=== PATIENT | male | born 1960 | race Caucasian/White ===

== ENCOUNTER 2017-04-27 12:19 | Emergency (ER) | payer OTHER ==
[2017-04-27] MEDS ORDERED: Aspirin EC Low Dose* 81 MG TAB.EC PO ONE (12:34)
[2017-04-27 12:35] VITALS: BP 161/113
[2017-04-27] MEDS ORDERED: Aspirin Low Dose CHEW TAB* 81 MG PO ONE (12:37)
[2017-04-27] MEDS ORDERED: Aspirin Low Dose CHEW TAB* 81 MG ONE (12:37)
--- NOTE | 2017-04-27 13:04 | UC ---
Rex Jeter Angela, scribed for Umesh Reyes MD on 04/27/17 at 1229 . Cardiac HPI - HPI Summary HPI Summary: This pt is a 56 y/o male presenting to [facility] c/o palpitations since 03:00 this morning. Pt reports he felt like his palpitations were due to anxiety as he has been under increased stress for the past couple of weeks. Pt notes he then went to work this morning but he continued to have palpitations. He states he had occasional chest pain which he describes as sharp. Denies any chest pain currently. He denies SOB, dizziness, feeling of passing out, lightheadedness, diaphoresis. PMHx significant for hyperthyroidism, hodgkin's disease, dyslipidemia. - History of Current Complaint Stated Complaint: CHEST COMPLAINT Time Seen by Provider: 04/27/17 12:22 Hx Obtained From: Patient Onset/Duration: Sudden Onset, Still Present Timing: Constant Current Severity: None Pain Intensity: 0 Chest Pain Location: Diffuse Character: Fast Aggravating Factor(s): Nothing Alleviating Factor(s): Nothing Associated Signs & Symptoms: Positive: Chest Pain, Recent Stress, Palpitations. Negative: Dizziness, SOB, Diaphoresis, Nausea/Vomiting - Allergy/Home Medications Allergies/Adverse Reactions: Allergies Allergy/AdvReac Type Severity Reaction Status Date / Time amoxicillin [From Augmentin] Allergy Rash Verified 04/27/17 12:36 clavulanic acid Allergy Rash Verified 04/27/17 12:36 [From Augmentin] Penicillins Allergy Rash Verified 04/27/17 12:36 Home Medications: Home Medications Aspirin 81 mg PO DAILY 04/27/17 [History Confirmed 04/27/17] Testosterone [Androgel] 5 gm TD DAILY 04/27/17 [History Confirmed 04/27/17] PMH/Surg Hx/FS Hx/Imm Hx - Additional Past Medical History Additional PMH: PMHx: dyslipidemia, hodgkin's lymphoma, s/p colonoscopy. Endocrine History: Thyroid Disease - hyperthyroidism Other Cardiovascular History: DENIES: HTN - Surgical History Surgical History: Yes Surgery Procedure, Year, and Place: splenectomy/appendectomy. abdominal surgery for hodgkin's disease - Family History Known Family History: Negative: Cardiac Disease, Hypertension, Diabetes - Social History Alcohol Use: Occasionally Substance Use Type: None Smoking Status (MU): Never Smoked Tobacco Review of Systems Constitutional: Negative Skin: Negative Eyes: Negative ENT: Negative Respiratory: Negative Cardiovascular: Palpitations, Chest Pain Gastrointestinal: Negative Genitourinary: Negative Motor: Negative Neurovascular: Negative Musculoskeletal: Negative Neurological: Negative Psychological: Negative All Other Systems Reviewed And Are Negative: Yes Physical Exam - Summary Physical Exam Summary: VITAL SIGNS: Reviewed. GENERAL: Patient is a well-developed and nourished male who is lying comfortable in the stretcher. Patient is not in any acute respiratory distress. HEAD AND FACE: Normocephalic EYES: PERRLA, EOMI x 2. EARS: Hearing grossly intact. MOUTH: Oropharynx within normal limits. NECK: Supple, trachea is midline, no adenopathy, no JVD, no carotid bruit. CHEST: Symmetric, no tenderness at palpation LUNGS: Clear to auscultation bilaterally. No wheezing or crackles. CVS: Tachycardic rate and rhythm, S1 and S2 present, no murmurs or gallops appreciated. ABDOMEN: Soft, non-tender. Bowel sounds are normal. No abdominal abnormal pulsations. EXTREMITIES: Full ROM in all major joints, no edema, no cyanosis or clubbing. NEURO: Alert and oriented x 3. No acute neurological deficits. Speech is normal and follows commands. SKIN: Dry and warm Triage Information Reviewed: Yes Vital Signs: Initial Vital Signs Temp 97.7 F 04/27/17 12:30 Pulse 129 04/27/17 12:30 Resp 16 04/27/17 12:30 BP 161/113 04/27/17 12:30 Pulse Ox 99 04/27/17 12:30 Vital Signs Reviewed: Yes Diagnostics - EKG Cardiac Rate: Tachycardia Cardiac Rhythm: Other Rhythm: New - EKG at 12:26 ectopic atrial tachycardia at 128 bpm. EKG at 12:29 shows ectopic atrial tachycardia at 128bpm. - Assessment/Plan Course Of Treatment: This pt is a 56 y/o male presenting to [facility] c/o palpitations since 03:00 this morning. Pt reports he felt like his palpitations were due to anxiety as he has been under increased stress for the past couple of weeks. Pt notes he then went to work this morning but he continued to have palpitations. He states he had occasional chest pain which he describes as sharp. Denies any chest pain currently. He denies SOB, dizziness, feeling of passing out, lightheadedness, diaphoresis. PMHx significant for hyperthyroidism , hodgkin's disease, dyslipidemia. The pt has an arrhythmia with 128 bpm, there are no T waves. Therefore, I believe the pt has atrial flutter, since he has an rregular rate and rhythm, or atrial tachycardia. I gave the pt aspirin at Urgent Care and he will be transferred to the ED. Pateint is asymptomatic and hemodynamically stable. I discussed the case with Dr. Sunshine, provider in the ED, who accepted the pt for transfer to the ED for further work up and management. Pt will be transferred to [facility] via ambulance. Pt is hemodynamically stable, alert and oriented x3. - Differential Diagnoses - Chest Pain Differential Diagnosis/HQI/PQRI: Other: - Atrial flutter, atrial tachycardia, arrhythmia - Clinical Impression Provider Diagnoses: Arrhythmia - Physician Notifications Discussed Patient Care With: Anibal Sunshine Time Discussed With Above Provider: 12:32 Instructed by Provider To: Other - I discussed pt care with Dr. Sunshine, provider in the ED. Pt will be transferred to the ED via ambulance. Discharge - Sign-Out/Discharge Documenting (check all that apply): Discharge - Discharge Plan Condition: Stable Disposition: TRANS HIGHER LVL OF CARE FAC Discharge Disposition Comment: [facility] ED Referrals: Madiha Negrete MD [Primary Care Provider] - - Billing Disposition and Condition Condition: STABLE Disposition: EMTALA The documentation as recorded by the Rex vazquez Angela accurately reflects the service I personally performed and the decisions made by me, Umesh Reyes MD.
== END 2017-04-27 12:50 | disposition short-term general hospital (02) ==
LOC: UCEAST 12:19
DX: I49.9 Cardiac arrhythmia, unspecified (principal); Z88.3 Allergy status to other anti-infective agents; Z88.0 Allergy status to penicillin
CPT/HCPCS: 93005; 99213; A9270-GY; G0463

== ENCOUNTER 2017-04-27 13:19 | Observation (INO) | payer OTHER ==
[2017-04-27] MEDS ORDERED: NS 0.9% 1000 ML* 2,000 ML IV ONE (13:54)
--- NOTE | 2017-04-27 14:28 | RAD ---
INDICATION: Tachycardia. COMPARISON: Comparison is made with a prior study from April 17, 2009. TECHNIQUE: A portable view of the chest was obtained. FINDINGS: Cardiac and mediastinal contours appear to be within normal limits. The lungs are clear. No pleural effusion is seen. IMPRESSION: NO EVIDENCE FOR ACUTE DISEASE.
[2017-04-27 14:36] LABS: ABS Basophils 0.1 10^3/ul (0-0.2); ABS Eosinophils 0 10^3/ul (0-0.6); ABS Neutrophils 10.2 10^3/ul (1.5-7.7); ABS Nucleated RBC 0 10^3/ul; Eosinophil % 0.3 % (0-6); Hematocrit 49 % (42-52); Hemoglobin 16.9 g/dl (14.0-18.0); Mean Corpuscular HGB Conc 34 g/dl (31-36); Mean Corpuscular Hemoglobin 31 pg (27-31); Mean Corpuscular Volume 92 fL (80-94); Mean Platelet Volume 8.2 um3 (7.4-10.4); Nucleated Red Blood Cells % 0.1; Platelet Count 286 10^3/ul (150-450); Red Blood Count 5.39 10^6/ul (4.0-5.4); Red Cell Distribution Width 13 % (10.5-15); White Blood Count 13.3 10^3/ul (3.5-10.8)
[2017-04-27] MEDS ORDERED: Metoprolol Tartrate TAB* 25 MG PO ONE (14:46)
[2017-04-27] MEDS ORDERED: Metoprolol Tartrate IV* 1 MG/ML 5 ML VIAL IV ONE (14:46)
[2017-04-27 14:54] LABS: EGFR Non-African American 86.5 (>60)
--- NOTE | 2017-04-27 16:32 | ECHO ---
Patient: TASIA GOEL [facility] Rec#: [id number] : 1960 Date: 04/27/2017 Age: 56y Height: 187.96 cm / 74.0 in Weight: 76.2 kg / 167.9 lbs Sex: M BSA: 2.02 Room#: -10 Admit Date#: 04/27/2017 Type: Inpatient Referring: Anibal Sunshine MD Reading: Aubrey Long MD Merchandise Processor: Sherice MillsCHI CC: Madiha Negrete MD Transthoracic Echocardiogram Indication: A-Flutter BP: 161/113 HR: 130 Rhythm: A-Flutter Findings History: Hyperthyroidism, Hodgkin's lymphoma, dyslipidemia. Technical Comments: The study quality is good. Completed at 1630. Left Ventricle: The left ventricular chamber size is decreased. Mild concentric left ventricular hypertrophy is observed. Global left ventricular wall motion and contractility are within normal limits. There is normal left ventricular systolic function. The estimated ejection fraction is 55-60%. The assessment of diastolic function is non-diagnostic. Left Atrium: The left atrial chamber size is normal. Right Ventricle: Moderator Band present. The right ventricular cavity size is normal. The right ventricular global systolic function is low normal. Right Atrium: The right atrium is moderately dilated. There is evidence of an atrial septal aneurysm. Aortic Valve: The aortic valve is trileaflet. There is no evidence of aortic valve thickening. There is no evidence of aortic regurgitation. There is no evidence of aortic stenosis. Mitral Valve: The mitral valve leaflets are mildly thickened. There is a trace of mitral regurgitation. There is no evidence of mitral stenosis. Tricuspid Valve: The tricuspid valve leaflets are normal. There is a physiologic tricuspid regurgitation. Unable to estimate the right ventricular systolic pressure. There is no tricuspid stenosis. Pulmonic Valve: The pulmonic valve appears normal. There is a trace pulmonic regurgitation. There is no pulmonic stenosis. Pericardium: There is no significant pericardial effusion. Aorta: There is no dilatation of the ascending aorta. There is no dilatation of the aortic arch. The aortic root is normal in size. Pulmonary Artery: The main pulmonary artery appears normal. Venous: The inferior vena cava appears normal in size. There is a greater than 50% respiratory change in the inferior vena cava dimension. Summary: There was not any prior study for comparison. Conclusions Mild concentric left ventricular hypertrophy is observed. The estimated ejection fraction is 55-60%. There is a trace of mitral regurgitation. There is a physiologic tricuspid regurgitation. Measurements Name Value Normal Range RVIDd (AP) 2D 3 cm (0.9 - 2.6) RVDdMajor (2D) 3.7 cm (2.2 - 4.4) RAd ISD 4CH 6.5 cm (3.4 - 4.9) RA (A4C)W 3.9 cm (2.9 - 4.6) IVSd (2D) 1.2 cm (0.6 - 1) LVPWd (2D) 1.3 cm (0.6 - 1) LVIDd (2D) 3.5 cm (3.6 - 5.4) LVIDs (2D) 2.2 cm - LV FS (2D) 35 % (25 - 45) Aortic Annulus 1.8 cm (1.4 - 2.6) Ao root diameter (2D) 3.2 cm (2.1 - 3.5) Ascending Ao 3.2 cm (2.1 - 3.4) Aortic arch 2.8 cm (1.8 - 3.4) LA dimension (AP) 2D 3.2 cm (2.3 - 3.8) LAd ISD 4CH 4.9 cm (2.9 - 5.3) LA ISD 4CH W 3.8 cm (2.5 - 4.5) Name Value Normal Range LA ESV SP 4CH (A/L) 37 ml - LA ESV SP 2CH (A/L) 58 ml - LA ESV BP (A/L) 49 ml - LA ESV BP (A/L) index 24 ml/m2 - LA ESV SP 4CH (MOD) 34 ml - LA ESV SP 2CH (MOD) 55 ml - Name Value Normal Range MV E-wave Vmax 0.69 m/sec - MV deceleration time 47.45 msec - MV A-wave Vmax 0.82 m/sec - MV E:A ratio 0.85 ratio - Name Value Normal Range AV Vmax 1.23 m/sec - AV VTI 20.06 cm - AV peak gradient 6.13 mmHg - AV mean gradient 3.18 mmHg - LVOT Vmax 1.06 m/sec - LVOT VTI 17.68 cm - LVOT peak gradient 4.38 mmHg - LVOT mean gradient 1.98 mmHg - AUBREE Vmax 0.67 m/sec - Name Value Normal Range IVC diameter 1.7 cm - Name Value Normal Range PV Vmax 0.77 m/sec - PV peak gradient 2.39 mmHg -
[2017-04-27] MEDS ORDERED: Diltiazem IV* 5 MG/ML 5 ML VIAL (for loading dose/IV Push) (25 MG) IV SLOW PU ONE (16:54)
[2017-04-27] MEDS ORDERED: Ondansetron INJ* 2 MG/ML VIAL IV PRN (16:54)
[2017-04-27] MEDS ORDERED: Potassium Chlor TAB* 20 MEQ TAB.ER PO ONE (16:54)
[2017-04-27] MEDS ORDERED: Acetaminophen TAB* 325 MG PO PRN (16:54)
[2017-04-27] MEDS ORDERED: Diltiazem DRIP* 100 MG/100 ML ADDV.BAG IVPB SCH (17:00)
[2017-04-27] MEDS ORDERED: Metoprolol Tartrate IV* 1 MG/ML 5 ML VIAL IV PRN (17:10)
--- NOTE | 2017-04-27 20:34 | ED ---
Andrea Jeter Jennifer, scribed for Anibal Sunshine MD on 04/27/17 at 1349 . Palpitations / Dysrhythmia - HPI Summary HPI Summary: The patient is a 56 year old male who came from Urgent Care with heart palpitations that began this morning. The patient reports he felt his heart pounding on and off last night at 03:00, which he attributed to recent stress. However, at work today he checked his heart rate and it was at 130 bpm, whereas it is normally at 50 bpm. The patient denies chest pain, shortness of breath, nausea, cough, chest congestion, nasal discharge, and history of blood blots. - History of Current Complaint Chief Complaint: EDDysrhythmPalp Time Seen by Provider: 04/27/17 13:40 Hx Obtained From: Patient Onset/Duration: Sudden Onset, Lasting Hours - about 10 hours, Still Present Timing: Constant Severity Initially: Moderate Severity Currently: Moderate Character: Fast, Pounding Aggravating: Nothing Alleviating: Nothing Associated Signs & Symptoms: Negative - chest pain, shortness of breath, nausea , cough, chest congestion, nasal discharge - Allergy/Home Medications Allergies/Adverse Reactions: Allergies Allergy/AdvReac Type Severity Reaction Status Date / Time amoxicillin [From Augmentin] Allergy Rash Verified 04/27/17 12:36 clavulanic acid Allergy Rash Verified 04/27/17 12:36 [From Augmentin] Penicillins Allergy Rash Verified 04/27/17 12:36 Home Medications: Home Medications Aspirin EC Low Dose* [Ecotrin EC Low Dose 81 MG*] 81 mg PO DAILY 04/27/17 [ History Confirmed 04/27/17] Testosterone GEL (NF) [Androgel (NF)] 50 mg TOPICAL DAILY 04/27/17 [History Confirmed 04/27/17] PMH/Surg Hx/FS Hx/Imm Hx Endocrine/Hematology History: Denies: Hx Diabetes, Other Endocrine/Hematological Disorders - Blood clots Cardiovascular History: Denies: Hx Hypertension - Surgical History Surgery Procedure, Year, and Place: splenectomy/appendectomy. abdominal surgery for hodgkin's disease Infectious Disease History: No Infectious Disease History: Reports: Hx Hepatitis Denies: Hx Clostridium Difficile, Hx Human Immunodeficiency Virus (HIV), Hx of Known/Suspected MRSA, Hx Shingles, Hx Tuberculosis, Hx Known/Suspected VRE, Hx Known/Suspected VRSA, History Other Infectious Disease, Traveled Outside the [place] in Last 30 Days - Family History Known Family History: Positive: Other - Father - had pacemaker Negative: Cardiac Disease, Hypertension, Diabetes - Social History Occupation: Employed Full-time Alcohol Use: None Substance Use Type: Reports: None Smoking Status (MU): Never Smoked Tobacco Review of Systems Negative: Nasal Discharge Positive: Palpitations. Negative: Chest Pain Respiratory: Negative - chest congestion Negative: Shortness Of Breath, Cough Negative: Nausea All Other Systems Reviewed And Are Negative: Yes Physical Exam - Summary Physical Exam Summary: General: well-appearing, no pain distress Skin: warm, color reflects adequate perfusion, dry Head: normal Eyes: EOMI, DOMENICA ENT: normal Neck: supple, nontender Respiratory: CTA, breath sounds present Cardiovascular: Tachycardic. Regular rhythm. Abdomen: soft, nontender Bowel: present Musculoskeletal: normal, strength/ROM intact Neurological: normal, sensory/motor intact, A&O x3 Psychological: affect/mood appropriate Triage Information Reviewed: Yes Vital Signs On Initial Exam: Initial Vitals Temp Pulse Resp BP Pulse Ox 99 F 128 10 137/110 98 04/27/17 13:27 04/27/17 13:27 04/27/17 13:27 04/27/17 13:27 04/27/17 13:27 Vital Signs Reviewed: Yes Diagnostics - Vital Signs Vital Signs Temp Pulse Resp BP Pulse Ox 04/27/17 13:27 99 F 128 10 137/110 98 - Laboratory Lab Results: Lab Results 04/27/17 04/27/17 04/27/17 Range/Units 14:26 14:26 14:26 WBC (3.5-10.8) 10^3/ul RBC (4.0-5.4) 10^6/ul Hgb (14.0-18.0) g/dl Hct (42-52) % MCV (80-94) fL MCH (27-31) pg MCHC (31-36) g/dl RDW (10.5-15) % Plt Count (150-450) 10^3/ul MPV (7.4-10.4) um3 Neut % (Auto) (38-83) % Lymph % (Auto) (25-47) % Butts % (Auto) (0-7) % Eos % (Auto) (0-6) % Baso % (Auto) (0-2) % Absolute Neuts (auto) (1.5-7.7) 10^3/ul Absolute Lymphs (auto) (1.0-4.8) 10^3/ul Absolute Monos (auto) (0-0.8) 10^3/ul Absolute Eos (auto) (0-0.6) 10^3/ul Absolute Basos (auto) (0-0.2) 10^3/ul Absolute Nucleated RBC 10^3/ul Nucleated RBC % INR (Anticoag Therapy) 0.90 (0.77-1.02) APTT 29.0 (26.0-36.3) seconds D-Dimer, Quantitative < 200 (Less Than 230) ng/mL Sodium 137 (133-145) mmol/L Potassium 3.8 (3.5-5.0) mmol/L Chloride 104 (101-111) mmol/L Carbon Dioxide 24 (22-32) mmol/L Anion Gap 9 (2-11) mmol/L BUN 18 (6-24) mg/dL Creatinine 0.91 (0.67-1.17) mg/dL Est GFR ( Amer) 111.2 (>60) Est GFR (Non-Af Amer) 86.5 (>60) BUN/Creatinine Ratio 19.8 (8-20) Glucose 99 (70-100) mg/dL Lactic Acid (0.5-2.0) mmol/L Calcium 9.3 (8.6-10.3) mg/dL Magnesium 2.1 (1.9-2.7) mg/dL Total Bilirubin 0.70 (0.2-1.0) mg/dL AST 15 (13-39) U/L ALT 15 (7-52) U/L Alkaline Phosphatase 54 (34-104) U/L Total Creatine Kinase 48 (10-223) U/L CK-MB (CK-2) 2.1 (0.6-6.3) ng/mL Troponin I 0.01 (<0.04) ng/mL C-Reactive Protein 1.50 (< 5.00) mg/L B-Natriuretic Peptide 196 H ( - 100) pg/mL Total Protein 6.9 (6.4-8.9) g/dL Albumin 4.1 (3.2-5.2) g/dL Globulin 2.8 (2-4) g/dL Albumin/Globulin Ratio 1.5 (1-3) Lipase < 10 L (11.0-82.0) U/L TSH 2.31 (0.34-5.60) mcIU/mL 04/27/17 04/27/17 Range/Units 14:26 14:26 WBC 13.3 H (3.5-10.8) 10^3/ul RBC 5.39 (4.0-5.4) 10^6/ul Hgb 16.9 (14.0-18.0) g/dl Hct 49 (42-52) % MCV 92 (80-94) fL MCH 31 (27-31) pg MCHC 34 (31-36) g/dl RDW 13 (10.5-15) % Plt Count 286 (150-450) 10^3/ul MPV 8.2 (7.4-10.4) um3 Neut % (Auto) 76.3 (38-83) % Lymph % (Auto) 15.0 L (25-47) % Butts % (Auto) 7.9 H (0-7) % Eos % (Auto) 0.3 (0-6) % Baso % (Auto) 0.5 (0-2) % Absolute Neuts (auto) 10.2 H (1.5-7.7) 10^3/ul Absolute Lymphs (auto) 2.0 (1.0-4.8) 10^3/ul Absolute Monos (auto) 1.0 H (0-0.8) 10^3/ul Absolute Eos (auto) 0 (0-0.6) 10^3/ul Absolute Basos (auto) 0.1 (0-0.2) 10^3/ul Absolute Nucleated RBC 0 10^3/ul Nucleated RBC % 0.1 INR (Anticoag Therapy) (0.77-1.02) APTT (26.0-36.3) seconds D-Dimer, Quantitative (Less Than 230) ng/mL Sodium (133-145) mmol/L Potassium (3.5-5.0) mmol/L Chloride (101-111) mmol/L Carbon Dioxide (22-32) mmol/L Anion Gap (2-11) mmol/L BUN (6-24) mg/dL Creatinine (0.67-1.17) mg/dL Est GFR ( Amer) (>60) Est GFR (Non-Af Amer) (>60) BUN/Creatinine Ratio (8-20) Glucose (70-100) mg/dL Lactic Acid 1.0 (0.5-2.0) mmol/L Calcium (8.6-10.3) mg/dL Magnesium (1.9-2.7) mg/dL Total Bilirubin (0.2-1.0) mg/dL AST (13-39) U/L ALT (7-52) U/L Alkaline Phosphatase (34-104) U/L Total Creatine Kinase (10-223) U/L CK-MB (CK-2) (0.6-6.3) ng/mL Troponin I (<0.04) ng/mL C-Reactive Protein (< 5.00) mg/L B-Natriuretic Peptide ( - 100) pg/mL Total Protein (6.4-8.9) g/dL Albumin (3.2-5.2) g/dL Globulin (2-4) g/dL Albumin/Globulin Ratio (1-3) Lipase (11.0-82.0) U/L TSH (0.34-5.60) mcIU/mL Result Diagrams: 04/27/17 14:26 04/27/17 14:26 Lab Statement: Any lab studies that have been ordered have been reviewed, and results considered in the medical decision making process. - Radiology CXR Xray Interpretation: No Acute Changes - NO EVIDENCE FOR ACUTE DISEASE. Dr. Sunshine has reviewed this report. Radiology Interpretation Completed By: Radiologist - EKG 13:57 Cardiac Rate: Other Rate EKG Rhythm: Atrial Flutter - 104 bpm Course/Dx - Course Course Of Treatment: Medications reviewed. Allergies noted. BP noted and advised to follow up with PCP. DISCUSSED WITH DR CINTRON, CARDIOLOGY. ADMIT HOSPITALIST STABLE. CRITICAL CARE TIME LESS THAN 30 MINUTES. - Diagnoses Provider Diagnoses: Elevated BP without diagnosis of hypertension, New onset atrial flutter Discharge - Sign-Out/Discharge Documenting (check all that apply): Discharge - ADMIT HOSPITALIST STABLE - Discharge Plan Condition: Stable Disposition: ADMITTED TO [facility] - Billing Disposition and Condition Condition: STABLE Disposition: [facility] [place] The documentation as recorded by the scribe, Mendez,Alexandra accurately reflects the service I personally performed and the decisions made by me, Anibal Sunshine MD.
[2017-04-27] MEDS: Metoprolol Tartrate TAB* 25 MG PO SCH (20:46)
[2017-04-27] MEDS: Apixaban* 5 MG TAB PO SCH (20:46)
--- NOTE | 2017-04-27 21:44 | HP ---
CC: Madiha Negrete MD HISTORY AND PHYSICAL: PRIMARY CARE PROVIDER: Madiha Negrete MD DICTATION ENDS HERE [place]URE [place]OR[place] NP [id number]/CPS #: [id number] MTDD
--- NOTE | 2017-04-27 21:53 | HP ---
CC: Madiha Negrete MD; Dr. Long * HISTORY AND PHYSICAL: DATE OF ADMISSION: 04/27/17 PRIMARY CARE PROVIDER: Madiha Negrete MD ATTENDING PHYSICIAN FROM THE HOSPITAL: Aubrie Del Rio MD * (report dictated by Beau Pedersen NP) CHIEF COMPLAINT: 1. Palpitations. 2. Anxiety. 3. Heart racing. HISTORY OF PRESENT ILLNESS: Mr. Smith is a 56-year-old male patient who has a history of Hodgkin's when he was 26 years old, he is in remission; history of thyroid nodule, status post partial thyroidectomy; hyperlipidemia; and hypogonadism. He comes into our ER today stating that around 3:30 in the morning yesterday, he woke up. He had an episode, his heart was racing fast. He felt that it may have been related to stress and anxiety as he is under a significant amount of stress from his job. He also says he does drink a couple of cups of coffee a day. He says he went to bed last night at 9:30, had no feelings of this, then he woke up at 3 in the morning with this. He also does state that he has had numerous episodes in the last several weeks to months where he has woken up in the middle on the night feeling like his heart is racing that he attributed this being anxiety. He today though noted that it persisted and he was concerned at 9 o'clock, he checked his pulse with his phone and it was noted to be in 130 and he says typically his heart rate hangs around in the 50s. He is pretty active gentleman. He bikes almost on a daily basis. He actually biked to work today and he had no chest pain or shortness of breath with the biking. He went to [facility]. He was found to be what appeared to be Aflutter and he was transferred to the ER, and we were asked to evaluate for admission. PAST MEDICAL HISTORY: 1. Hypogonadism. 2. Hodgkin's. 3. Thyroid nodule. 4. Hyperlipidemia. PAST SURGICAL HISTORY: 1. He has had a partial thyroidectomy. 2. Splenectomy. 3. Appendectomy. HOME MEDICATIONS: Include: 1. Aspirin 81 mg daily. 2. Testosterone gel 50 mg topically daily. ALLERGIES TO MEDICATIONS: Includes PENICILLIN, AUGMENTIN. FAMILY HISTORY: Mother had a history of a CHF. Father had a history of sick and sinus syndrome with pacemaker, multiple myeloma, history of Parkinson. SOCIAL HISTORY: The patient does drink 2 cups of coffee a day. Does not drink alcohol. Does not smoke. He works at [employer]. Surrogate decision maker is his . REVIEW OF SYSTEMS: There is no documented fever. He denied having any significant weight change. There was no double vision. He denies having any ear discharge. There is no rhinorrhea. No sore throat. No thyroid enlargement. Denied having any chest pain. There is no orthopnea. He did admit to having palpitations. No orthopnea. No nocturnal dyspnea. There is no abdominal pain, no nausea, no vomiting, no dysuria, no frequency, no seizure , no loss of consciousness, no pruritus, and no skin ulcerations. Review of 14 systems completed, all others negative. PHYSICAL EXAMINATION GENERAL: Mr. Smith is a 56-year-old male patient, he is sitting in the ED stretcher. He does not appear to be in any acute distress. VITAL SIGNS: Blood pressure 140/99, pulse 130, respirations 18, O2 sat 97%, temperature 99.0. HEENT: Head: Atraumatic, normocephalic. Eyes: EOMs are intact. Sclerae are anicteric and not pale. Throat: Oral mucosa appears to be moist. No oropharyngeal erythema. NECK: Supple. LUNGS: Clear to auscultation bilaterally. No wheezes, rales, or rhonchi. HEART: Sounds S1, S2. He is tachycardic. Regular rate and rhythm. No murmurs , rubs, or gallops. ABDOMEN: Soft, flat, nontender. Bowel sounds are present. EXTREMITIES: Pulses were 2+ throughout. He is moving all 4 extremities with 5/ 5 strength. NEUROLOGIC: The patient is awake, he is alert. He is oriented x3. Tongue midline. Mechanical Engineering Technician were equal. He had no gross focal deficits. SKIN: Intact. LABORATORY DATA: WBC 13.3, RBC of 5.39, hemoglobin 16.9, hematocrit of 49, platelet count 289, INR was 0.90. His PTT was 29. D-dimer less than 200. The sodium was 137, potassium 2.8, chloride 104, bicarb 24, BUN 18, creatinine 0.91 , glucose 99, lactic 1, calcium 9.3, mag 2.1. Total bili 0.7, AST 15, ALT 15, alk phos 4, CK 48, CK-MB 2.1. Troponin 0.01. BNP 196. TSH normal at 2.31. He had a chest x-ray obtained today, which showed no evidence for active disease. He had an EKG today showing what appeared to be Aflutter with 2:1 at 128 beats a minutes, that was at Urgent Care. Repeat showed Aflutter with a 3:1 block, rate of 104 here in the ED. No ST elevation was noted. He did have ST depression in lead II and III. Old medical records were reviewed. ASSESSMENT AND PLAN: Mr. Smith is a 56-year-old male patient coming into the ED today with complaints of fast heart rate and on evaluation was found to have atrial flutter. He will be admitted under observation status for: 1. Atrial flutter: At this point, I did touch base with Dr. Long. The patient actually when I spoke Dr. Long, it was thought that he had received the beta- blockers, but he had not yet. He just received the beta-blockers and his heart rate has been dropping down into the 90s with this and is responding, so I am actually going to go ahead and continue p.r.n. Lopressor and p.o. Lopressor and start him on Eliquis, n.p.o. after midnight for possible ASMITA guided cardioversion. We were talking possibly of doing diltiazem drip but again he is now responding to these beta-blockers and hopeful that with the continuation of these, he continues to stay and trend in the 90s. 2. Hypogonadism: He can continue his meds as prescribed when he is discharged. 3. History of Hodgkin's: Follow with his primary. 4. History of hyperlipidemia: Follow with his PCP. 5. DVT prophylaxis: He will be placed on Eliquis 5 b.i.d. 6. Code status: Full code. 7. Fluid, nutrition, diet: Heart healthy diet and n.p.o. after midnight. TIME SPENT: Time spent on the admission was approximately 60 minutes, greater than half of the time was spent [id number] with the patient obtaining history and physical, the other half of the time was spent going over the plan of care with the patient and implementing the plan of care. I did discuss plan of care with my attending, Dr. Del Rio, she is in agreement. BEAU PEDERSEN, BILINGUAL RESEARCH INTERVIEWER [id number]/[facility] #: [id number] BEATA
[2017-04-27] MEDS ORDERED: NS 0.9% 1000 ML* 1,000 ML IV ONE (23:49)
--- NOTE | 2017-04-27 23:52 | PN ---
Progress Note - Progress Note Date of Service: 04/27/17 Note: CAT call - patient had a suspected vasovagal syncopal episode after urinating. States he got lightheaded shortly after urinating. RN was able to assist him to the ground as he LOC. No Chest pain. Patient remains in atrial fib/ flutter. Glucose: 80, VItals: NL. 1 L NS given and started on fluids. Will repeat labs now.
[2017-04-28 00:31] LABS: EGFR Non-African American 76.7 (>60)
[2017-04-28] MEDS: NS 0.9% 1000 ML* 1,000 ML IV SCH ×2 (01:50→09:48)
[2017-04-28 05:34] LABS: ABS Basophils 0.1 10^3/ul (0-0.2); ABS Eosinophils 0 10^3/ul (0-0.6); ABS Lymphocytes 3.3 10^3/ul (1.0-4.8); ABS Monocytes 1.1 10^3/ul (0-0.8); ABS Neutrophils 5.5 10^3/ul (1.5-7.7); ABS Nucleated RBC 0 10^3/ul; Eosinophil % 0.3 % (0-6); Hematocrit 48 % (42-52); Hemoglobin 16.6 g/dl (14.0-18.0); Lymphocyte % 33.4 % (25-47); Mean Corpuscular HGB Conc 35 g/dl (31-36); Mean Corpuscular Hemoglobin 32 pg (27-31); Mean Corpuscular Volume 92 fL (80-94); Mean Platelet Volume 8.4 um3 (7.4-10.4); Nucleated Red Blood Cells % 0.1; Platelet Count 295 10^3/ul (150-450); Red Blood Count 5.24 10^6/ul (4.0-5.4); Red Cell Distribution Width 13 % (10.5-15)
[2017-04-28 05:40] LABS: INR 0.99 (0.77-1.02)
[2017-04-28 06:02] LABS: EGFR Non-African American 84.4 (>60)
[2017-04-28] MEDS: Apixaban* 5 MG TAB PO SCH ×3 (06:41→21:19)
[2017-04-28] MEDS: Metoprolol Tartrate TAB* 25 MG PO SCH (08:37)
--- NOTE | 2017-04-28 10:21 | PN ---
Subjective Date of Service: 04/28/17 Interval History: Mr. Sarah Hernandez reports that he is feeling well other than feeling tired and hungry. He denies palpitations or feeling that his heart is racing. He confirms having a syncopal episode overnight while up to urinate. He denies ever having a similar episode in the past. Objective Active Medications: Acetaminophen (Tylenol Tab*) 650 mg PO Q4H PRN Apixaban (Eliquis*) 5 mg PO 0900,2100 CHRISTIANO Sodium Chloride (Ns 0.9% 1000 Ml*) 1,000 mls @ 125 mls/hr IV PER RATE CHRISTIANO Metoprolol Tartrate (Lopressor Iv*) 5 mg IV Q6H PRN Metoprolol Tartrate (Lopressor Tab*) 25 mg PO BID CHRISTIANO Ondansetron HCl (Zofran Inj*) 4 mg IV Q6H PRN Vital Signs: Temp Pulse Resp BP Pulse Ox 98.6 F 100 16 130/96 99 04/28/17 08:32 04/28/17 09:21 04/28/17 08:32 04/28/17 08:32 04/28/17 08:32 Oxygen Devices in Use Now: None Appearance: Male lying in bed in NAD, at bedside Neck: NL Appearance and Movements; NL JVP, Trachea Midline Respiratory: Symmetrical Chest Expansion and Respiratory Effort, Clear to Auscultation Cardiovascular: NL Sounds; No Murmurs; No JVD, No Edema, - - irregular Abdominal: NL Sounds; No Tenderness; No Distention Lymphatic: No Cervical Adenopathy Extremities: No Edema Skin: No Rash or Ulcers Neurological: Alert and Oriented x 3, NL Muscle Strength and Tone Nutrition: - - NPO Result Diagrams: 04/28/17 05:22 04/28/17 05:22 Additional Lab and Data: . Assess/Plan/Problems-Billing Assessment: Mr. Sarah Hernandez is a 56 yo male with PMH of hypogonadism, Hodgkin's lymphoma in remission, and a thryoid nodule who was admitted on 04/27/17 with new onset atrial fibrillation, now with syncopal episode overnight. - Patient Problems (1) Afib Comment: - Now s/p cardioversion, in NSR. - Anticoagulation started with apixaban. - Syncopal episode overnight with no history of same. Afib with HR ~100 at time of event. ? if precipitated by afib or orthostasis due to metoprolol. - Appreciate cardiology consult. - TTE showed normal wall motion, no significant valvular abnormalities, no PFO, intact EF. But ASMITA showed depressed EF 35-40% likely afib related. Will need repeat echo and stress test outpatient. - K 4.2 and Mag 2.5. Risk factors for afib include caffeine. (2) DVT prophylaxis Comment: - Apixaban. (3) Hypogonadism Comment: - Continue testosterone at discharge. (4) Full code status Comment: Status and Disposition: OBV.
[2017-04-28] MEDS ORDERED: fentaNYL* 50 MCG/ML 2 ML VIAL (100 MCG VIAL) ONE (12:31)
[2017-04-28] MEDS ORDERED: Naloxone* 0.4 MG/ML 1 ML VIAL ONE (12:31)
[2017-04-28] MEDS ORDERED: Flumazenil* 0.1 MG/ML 5 ML MDV ONE (12:32)
[2017-04-28] MEDS ORDERED: Lidocaine 2% VISCOUS* 15 ML UDC ONE (12:32)
[2017-04-28] MEDS ORDERED: Midazolam* 1 MG/ML 10 ML VIAL (10 MG) ONE (12:32)
--- NOTE | 2017-04-28 14:02 | TEE ---
Patient: TASIA GOEL [facility] Rec#: [id number] : 1960 Date: 04/28/2017 Age: 56y Height: 187.96 cm / 74.0 in Weight: 76.2 kg / 167.9 lbs Sex: M BSA: 2.02 Room#: [facility] Type: Inpatient Referring: Bree Harper NP Performing: Aubrey Long MD Reading: Aubrey Long MD Control Director: Sherice Mills RDCS Nurse: Edy Valiente RN CC: Madiha Negrete MD Transesophageal Echocardiogram Indication: A-flutter BP: 131/88 HR: 86 Rhythm: A-Flutter Findings History: Hodgkin's lymphoma, dyslipidemia, hypothyroidism, and hypogonadism. Technical Comments: The study quality is good. Left Ventricle: The left ventricular chamber size is decreased. There is global hypokinesis of the left ventricle with minor regional variation. There is moderately decreased left ventricular systolic function. The estimated ejection fraction is 35-40%. The assessment of diastolic function is non-diagnostic. Left Atrium: The left atrium is mildly dilated. The left atrial appendage velocity is normal. The left atrial appendage is large in size. No thrombus is visualized within the left atrium. There is no thrombus visualized in the left atrial appendage. Right Ventricle: The right ventricular cavity size is normal. The right ventricular global systolic function is moderately reduced. Right Atrium: The right atrium is mildly dilated. Interatrial septum appears intact without evidence of shunting. The bubble study is negative. A patent foramen ovale is not demonstrated with color Doppler and agitated contrast. Aortic Valve: The aortic valve is trileaflet. There is no evidence of aortic valve thickening. There is no evidence of aortic regurgitation. There is no evidence of aortic stenosis. Mitral Valve: The mitral valve leaflets are mildly thickened. There is mild mitral regurgitation. mutliple trace jets with overall mild MR. There is no evidence of mitral stenosis. Tricuspid Valve: The tricuspid valve leaflets are normal. There is mild tricuspid regurgitation. Unable to estimate the right ventricular systolic pressure. There is no tricuspid stenosis. Pulmonic Valve: The pulmonic valve appears normal. There is a trace pulmonic regurgitation. There is no pulmonic stenosis. Pericardium: There is no significant pericardial effusion. Aorta: There is no dilatation of the ascending aorta. The aortic root is normal in size. There is plaque visualized in the descending aorta. There is minimal atherosclerotic plaque in the visualized segments of the aorta. Pulmonary Artery: The main pulmonary artery appears normal. Venous: The bicaval view was obtained and appears normal. The pulmonary veins appear normal. The pulmonary veins appear normal in size. 2 of 4 visualized. ASMITA Procedures: All standard views were attempted within the limitations of patient tolerance and safety. History and physical as well as labs were reviewed. The patient was in a fasting state. Risks and benefits of the procedure, including alternatives, were discussed and written informed consent was obtained. The patient and/or their health care payable representative expressed understanding of the procedure, risks and benefits. Baseline and continuous monitoring of blood pressure, heart rate, pulse oximetry and heart rhythm was performed throughout the procedure. The appropriate time-out procedure was performed as per [facility] protocol. The patient was placed in the left lateral decubitus position. The patient received IV Midazolam with a total dose of 10 mg. The patient received IV Fentanyl with a total dose of 100 mcg. An oral bite block was inserted for protection of oral dentition. The multiplane transesophageal echocardiogram probe was inserted through the posterior oropharynx and advanced into the esophagus without difficulty. Multiple 2D images were obtained of the heart and its related structures. Color flow Doppler was used for evaluation. Spectral Doppler was also used. The atrial septum was interrogated with color flow Doppler. At the conclusion of the procedure the probe was removed with continuous suction without complications. The patient tolerated the procedure with no apparent complications. Contrast: Normal saline was used as contrast for the bubble study. Image 45. Intravenous contrast was used to help determine presence of intracardiac shunting. Conclusions There is global hypokinesis of the left ventricle with minor regional variation. There is moderately decreased left ventricular systolic function. The estimated ejection fraction is 35-40%. The left atrium is mildly dilated. There is no thrombus visualized in the left atrial appendage. The right ventricular global systolic function is moderately reduced. The right atrium is mildly dilated. The bubble study is negative. There is mild mitral regurgitation. There is mild tricuspid regurgitation. There is plaque visualized in the descending aorta. There is minimal atherosclerotic plaque in the visualized segments of the aorta. Compared to 3.22.18, the EF has decreased from 55-60% then to 35-40% now. Measurements Name Value Normal Range Aortic Annulus 1.8 cm (1.4 - 2.6) Ao root diameter (2D) 3.3 cm (2.1 - 3.5) Ascending Ao 3.3 cm (2.1 - 3.4)
--- NOTE | 2017-04-28 22:40 | CONS ---
CC: Dr. Negrete; Dr. Long CARDIOLOGY CONSULTATION NOTE: PATIENT OF: Dr. Negrete and Dr. Long. CONSULTING PHYSICIAN: Beau Pedersen NP REASON FOR EVALUATION: Atrial flutter. HISTORY: This is a 56-year-old gentleman who has no significant cardiovascular history. He does have a history of hypogonadism and was started on testosterone about a year ago, also has a history of thyroid nodule. He was in his usual state of health until yesterday. He said he awoke with a start at night and thought his heart was racing, but did not think much of it. He biked to work, which is downhill, but that he noticed when he got to his work, his heart rate was about 130 on his phone pollo. Because of the symptoms, he went to the [facility]. He was noted to be in atrial flutter with a rapid ventricular response and was sent to the emergency room. He was treated with IV metoprolol and IV Cardizem with some slowing of his heart rate. He got up during the night at about 2300 last night. He said he stood up and went to the bathroom. While standing to urinate, he felt poorly. He said that he felt nauseous and lightheaded and apparently fell and the nurse caught him before he could hit the ground. He remembers being lowered to the floor, but then woke up on the floor after being out for about 30 seconds. According to Bree Harper NP, his heart rhythm was Aflutter with a rate of about 100 throughout the episode. This morning, he received metoprolol and there was an attempt to get orthostatic blood pressures. Lying down, it was 97/58 with a pulse of 70, sitting was 113/79 with a pulse of 57 and standing was 79/63 with a heart rate 95 and he felt poorly. Of note, his blood pressures have been quite variable ranging from 110/80 to 137/100. He said that about 9 months ago, he noticed his heart racing after an increase in his dose of testosterone from 60 mcg a day to 80 mcg a day with cutting back to 60 mcg a day. He thought that the symptoms have improved. He denies any syncope. No orthopnea. No peripheral edema. He denies any fever, chills or sweats. He denies any previous heart rhythm problems or rheumatic fever or murmurs. Denies hypertension or diabetes. Does have a history of hyperlipidemia, was on statin years ago, but that seems to have resolved. He denies tobacco use or alcohol use. He does drink 10 ounces of coffee a day. PAST MEDICAL HISTORY: Includes Hodgkin's lymphoma at age 26, treated with chemotherapy, hypogonadism, thyroid nodule, hyperlipidemia. In the past, he has had partial thyroidectomy, splenectomy and appendectomy. MEDICATIONS: Include: 1. Aspirin 81 mg a day. 2. Testosterone gel 50 mg topically daily. ALLERGIES: Include PENICILLIN and AUGMENTIN. SOCIAL HISTORY: He is the youngest of 8 siblings. He states he has a 71-year- old brother who has a history of sickened heart and required surgery for what sounds like asymmetric septal hypertrophy. He is and has 2 children. He works in [employer]. He is accompanied by his , Anaya. His exercise includes riding a tricycle to work and back each day for about 5 miles. He states it is downhill going and uphill returning. REVIEW OF SYSTEMS: Review of systems x10 was negative except as above. PHYSICAL EXAMINATION: General: On physical examination, he is a well developed , well nourished gentleman, in no apparent distress. Blood pressure: See medical record. It was approximately 130s/80s at the time of evaluation. Pulse was 112, varying from 112 to 120, some irregularity, atraumatic, normocephalic. Extraocular movements are intact. Sclerae anicteric. No significant JVD. Carotid 2+. Cardiac exam: S1, S2 without murmurs, gallops or rubs. Chest: Clear. No CVAT. Abdomen: Bowel sounds present, nontender. Femoral pulses intact without bruits. Distal pulses intact. No edema. Motor strength 5/5 bilaterally. Deep tendon reflexes 2/4. Neurologic: Alert and oriented x3. DIAGNOSTIC STUDIES/LAB DATA: Include a white count of 10 down from 13 yesterday , hematocrit of 48, platelet count 295. Sodium 139, potassium of 4.2, BUN of 14 , creatinine of 0.93. Troponin 0.01 x3. D-dimer was negative. Chest x-ray: No evidence for acute disease. EKG from midnight last night revealed what appeared to be atrial flutter with a controlled ventricular response in the 80s. RSR prime in V1 and V2. No acute changes. EKG after cardioversion revealed sinus bradycardia at 55 with RSR prime in V1, left atrial enlargement, anterior ST elevations, possible early repolarization. He had an echocardiogram performed yesterday on 04/27/17, which revealed an EF of 55% to 60% with mild concentric LVH, trace of MR, trace TR, trace PI. No dilatation of the aorta. Wall thickness of 12 to 13 mm. He subsequently underwent ASMITA guided cardioversion, which revealed mild to moderately reduced LV function, EF of 35% to 40%. Trace to mild MR, mild TR. No evidence of intracardiac thrombus and he was successfully converted to sinus rhythm. IMPRESSION: Mr. Sarah Hernandez had an episode of atrial flutter with a rapid ventricular response. He also had an episode of syncope related to orthostatic changes, possibly vasovagal and/or orthostatic. He has mild LVH, but could be due to his bicycling, although he does have a family history of what sounds like hypertrophic cardiomyopathy. I explained to him and his that the atrial flutter may or may not recur in the future and that he need continued monitoring and surveillance for recurrent atrial flutter. Intervention may include rate control agents versus antiarrhythmics versus referral for ablation depending on his clinical course. Managing may be difficult due to his low normal blood pressures and low resting heart rate, which may prevent the use of beta-blockers and calcium channel blockers. In addition, he has mild LVH, which raise the possibility of an early hypertrophic cardiomyopathy. He reports that he had an echo about 5 years ago, it was negative. He may be at risk for development of late onset cardiomyopathy on the basis of his family history. He also has reduced LV function today compared to yesterday, which may be the result of the tachycardia-induced cardiomyopathy. For the time being , I have recommended following: I would suggest that we hydrate and observe him overnight for resolution of his orthostatic hypotension. Would consider checking a cortisol level in the morning to evaluate for adrenal insufficiency. Would check TSH. We will try to maintain his potassium over 4. I have asked him to avoid caffeine. He is to monitor for recurrence of his atrial arrhythmias and we will advance his treatment as needed. If he continues to have tachy and bradyarrhythmias that we cannot control, he may benefit from antiarrhythmic or referral for EP evaluation, ablation. He is to continue on his anticoagulant for at least a month. At some point, we will recheck his EF and do a stress test to evaluate for coronary artery disease in light of his decreased LV function. Further recommendations will depend on his clinical course. [id number]/[facility] #: [id number] BEATA
[2017-04-29 05:54] LABS: EGFR Non-African American 78.5 (>60)
[2017-04-29] MEDS: Apixaban* 5 MG TAB PO SCH (09:18)
[2017-04-29] MEDS ORDERED: Potassium Chloride LIQUID* 20 MEQ PACKET PO ONE (09:18)
[2017-04-29 11:25] VITALS: BP 123/76
--- NOTE | 2017-04-30 04:00 | DS ---
CC: Madiha Negrete MD * DISCHARGE SUMMARY: DATE OF ADMISSION: 04/27/17 DATE OF DISCHARGE: 04/29/17 PRIMARY CARE PROVIDER: Madiha Negrete MD MY ATTENDING WHILE IN THE HOSPITAL: Dr. Jaimie Ziegler.* (DICTATED BY CHARLENE ROMERO) PRIMARY DISCHARGE DIAGNOSES: 1. Atrial flutter. 2. Heart failure with reduction ejection fraction, likely tachycardia induced. SECONDARY DISCHARGE DIAGNOSES: 1. Hypogonadism. 2. Hyperlipidemia. 3. History of treated Hodgkin's lymphoma. STUDIES DONE WHILE IN THE HOSPITAL: 1. Chest x-ray from 04/27/17, read as no evidence for acute disease. 2. Electrocardiogram from 04/27/17 read as unifocal atrial tachycardia, rate of 128, QTc of 517, normal axis, no ST-segment abnormalities, no other significant changes. Repeat EKG from 04/27/17 shows no significant changes. Repeat EKG from 04/27/17 shows rate of 104, sawtooth P waves with occasional possible sawtooth P waves with occasional unconducted P waves, atrial rate of 272. No other significant changes. Repeat EKG from 04/27/17 shows new right bundle branch block pattern, peaked T waves in V3, ST elevation in V3, V4, V5, continued atrial flutter, no other significant changes, QTc of 418. 3. EKG from 04/28/17 shows normal sinus rhythm, persistent right bundle branch block pattern. EKG from 04/29/17 shows persistent right bundle branch block, ST -segment elevation persist in V3, V4, possibly due to right bundle branch block , no other significant abnormalities, rate of 52, normal axis. 4. Transthoracic echocardiogram from 04/27/17 read as mild concentric left ventricular hypertrophy, estimated ejection fraction 55% to 60%, there is trace mitral regurgitation, there is physiologic tricuspid regurgitation. 5. Transesophageal echocardiogram from 04/28/17, read as there is global hypokinesis with minor regional variation. There is moderately decreased left ventricular systolic function. There is estimated ejection fraction of 35% to 40%. Left atrium is mildly dilated. There is no thrombus visualized in the left atrial appendage, right ventricular global systolic function is mildly reduced. Right atrium is mildly dilated. Bubble study is negative. There is mild mitral regurgitation. There is mild tricuspid regurgitation. There is plaque visualized in the descending aorta. There is minimal atherosclerotic plaque in the visualized segments of the aorta compared to 04/27/17. The EF is decreased from 55% to 60% and then to 35% to 40% now. MEDICATIONS AT DISCHARGE: 1. Aspirin 81 mg p.o. daily. 2. Testosterone 50 mg topical daily. 3. Tylenol 650 mg p.o. q.4 hours as needed. 4. Eliquis 5 mg p.o. b.i.d. 5. Potassium chloride tablet 20 mEq p.o. daily. New medications on discharge: 1. Tylenol. 2. Eliquis. 3. Potassium. Medications discontinued on discharge: None. HOSPITAL COURSE: This is a brief summary of the patient's presentation. For more details, please see the history and physical from Beau Pedersen NP, on . In brief, the patient is a 56-year-old male with a past medical history significant for the above, who presents with palpitations and anxiety, which started this most recent time around 3:30 in the morning. On the day of his admission, the patient states he has been under quite a bit of stress and drinks 2 cups of coffee a day. The patient had no complaints when he went to bed last night. The patient states he has had numerous episodes in the previous weeks to months that is where he woke up in the middle of the night. The patient is very active and bike to work, with no chest pain, shortness of breath, but had a heart rate of 130 on a heart rate monitoring pollo. The patient was found to be in atrial flutter at [facility] and was sent to emergency department, was admitted to the hospital. The patient received beta hawa, Eliquis, and was able to be adequately rate controlled. The patient had no elevated troponin. The patient had slightly elevated BNP. The patient had no significant laboratory abnormality except for white blood cell count of 13.3, likely related to stress reaction. The patient remained in the hospital. The patient was seen in consultation by Dr. Aubrey Long of Cardiology on . The patient had a ASMITA-guided cardioversion on 04/28/17, no intracardiac thrombus was noted, but he had decreased ejection fraction which was new from the previous day. The patient also had septal hypertrophy read as above and has a family history of cardiomyopathy, possibly due to hypertrophic cardiomyopathy. The patient also had an episode of dizziness upon standing with syncope while in the hospital. This was while he was on beta hawa. This resolved after his cardioversion and discontinuation of his beta hawa. The patient was observed overnight. It was recommended that the patient's potassium to be above 4.0 and was 3.7 on the morning of 04/29/17. The patient' s magnesium stayed above 2 during hospitalization. The patient's TSH was within normal limits. The patient felt "great" on day of his discharge. He is amenable to discharge with followup with Cardiology to assess his ejection fraction probably down the road and to assess for hypertrophic cardiomyopathy. PHYSICAL EXAMINATION ON DAY OF DISCHARGE: General: The patient is a 56-year- old male, who appears stated age, and is sitting comfortably in bed, in no acute distress. Vital signs at time of discharge, temperature 97.9, heart rate 58, respiratory rate 16, oxygen saturation 95% on room air, blood pressure 109/ 70. HEENT: Head normocephalic, atraumatic. Sclerae anicteric. No conjunctival injection. Nasal mucosa moist. Oral mucosa moist. No pharyngeal erythema, discharge, exudate, or thrush. Neck: Supple, nontender. No lymphadenopathy. No carotid bruit auscultated. No JVD. Cardiac: Regular rate and rhythm. No clicks, murmurs, gallops, or rubs. Pulses 2+ in the bilateral dorsalis pedis and posterior tibialis and radial areas. PMI nondisplaced. No S3 or S4. Respiratory: Clear to auscultation bilaterally. No wheezes, rales, or crackles. Good air exchange bilaterally. Abdomen: Soft , nontender, nondistended. Bowel sounds present, normoactive in all 4 quadrants. No hepatosplenomegaly. No abdominal bruits auscultated. Genitourinary: No suprapubic or CVA tenderness. Skin: Clean, dry, intact. No rash. Neuro: Cranial nerves II through XII intact. Normal gait. No focal deficits. Psychiatric: Pleasant and cooperative. LABORATORY DATA: On day of discharge, sodium 138, potassium 3.7, chloride 107, carbon dioxide 26, anion gap 5, BUN 17, creatinine 0.99, glucose 117, calcium 8.8, and magnesium 2.2. Cortisol 11.59. Other pertinent laboratory abnormalities from this hospitalization are as above. DISCHARGE PLAN: The patient will be discharged to home. The patient will follow up with his primary care provider within 1 week for general medical management. The patient will avoid caffeine, take a potassium supplement, and follow up with Cardiology within 1 to 2 weeks for repeat echocardiogram to assess for resolution of his decreased ejection fraction as well as to monitor his septal hypertrophy. The patient should not engage in strenuous exercise during this time, to avoid provoking atrial flutter as well as being at risk for fatal tachyarrhythmias due to the possibility of hypertrophic cardiomyopathy. The patient will have his activity level reassessed at his followup Cardiology appointment outpatient. The patient should otherwise have a heart-healthy diet. The patient's orthostatic tachycardia has resolved. The patient should drink plenty of fluids, however, as his blood pressure is on the low side, he may have been dehydrated on admission. The patient should return to hospital for alarming symptoms such chest pain, shortness of breath, syncope , or palpitations. TIME SPENT: Approximately 60 minutes was spent on this discharge, 30 of which was spent [id number] with the patient obtaining history and physical and discussing treatment plan as above. CHARLENE ROMERO [id number]/[facility] #: [id number] BE[place]
[2017-04-30] MEDS ORDERED: Potassium Chlor TAB* 20 MEQ TAB.ER PO SCH (09:00)
== END 2017-04-29 12:05 | disposition home or self-care (01) ==
LOC: ED 13:19 → MEDTELE 16:48
PROVIDERS: ADMIT Internal Medicine; ATTEND Internal Medicine
DX: I48.92 Unspecified atrial flutter (principal); I50.9 Heart failure, unspecified; E29.1 Testicular hypofunction; E78.5 Hyperlipidemia, unspecified; Z85.71 Personal history of Hodgkin lymphoma; Z79.01 Long term (current) use of anticoagulants; Z79.899 Other long term (current) drug therapy; Z88.0 Allergy status to penicillin; Z88.1 Allergy status to other antibiotic agents; Z88.8 Allergy status to other drugs, medicaments and biological substances; R94.31 Abnormal electrocardiogram [ECG] [EKG]
CPT/HCPCS: 36415; 71045; 80048; 80053; 82533; 82550; 82553; 83605; 83690; 83735; 83880; 84443; 84484; 85025; 85379; 85610; 85730; 86140; 92960; 93005; 93306; 93312; 93325; 96374; 99156; 99157; 99285; A9270-GY; G0378; J2250; J2310; J3010; J3490